=== PATIENT | female | born 1990 | race Asian ===

== ENCOUNTER 2021-07-09 09:49 | Inpatient (IN) | payer SELFPAY ==
[2021-07-09] MEDS ORDERED: Ondansetron 4 MG/2 ML SDV IVPUSH PRN (10:01)
[2021-07-09] MEDS ORDERED: Sodium Chloride 0.9% 10 ML Syringe FLUSH PRN (10:01)
[2021-07-09] MEDS ORDERED: Nalbuphine 10 MG/1 ML Vial IVPUSH PRN (10:01)
[2021-07-09] MEDS ORDERED: Lactated Ringers 1,000 ML IV SCH (10:15)
[2021-07-09] MEDS ORDERED: Oxytocin/Lactated Ringers 10 UNIT/1,000 ML BAG IV SCH ×2 (10:15)
--- NOTE | 2021-07-09 13:07 | PCM.LDHP ---
L&D History of Present Illness - General Date of Service: 07/09/21 Admit Problem/Dx: Patient Status Order with Admit Dx/Problem 07/09/21 10:02 Patient Status [ADT] Routine Admission Diagnosis/Problem Admission Diagnosis/Problem Source of Information: Patient History Limitations: Reports: No Limitations - History of Present Illness Introduction:: Patient is a 31 y/o at 39 5/7 wks who presented for IOL due to recent COVID vaccination and concerns for feeling more symptomatic. Tested positive 06/30 and then became more symptomatic and so underwent monoclonal antibody infusion on 07/02. On 07/06 was seen in clinic and still noted persistent cough and feelings of difficulty with becoming easily SOB. Requested elective IOL. Here today for IOL and notes suzie since overnight. 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 Covid- 19: 06/30/2021 - Past Surgical History HEENT Surgical History: Reports: Other (See Below) Other HEENT Surgeries/Procedures: [place] teeth extraction Female Surgical History: Reports: Breast Implant Dermatological Surgical History: Reports: Plastic Surgical Reconstruction/Repair Social & Family History - Family History Family Medical History: No Pertinent Family History - Tobacco Use Tobacco Use Status *Q: Never Tobacco User Second Hand Smoke Exposure: No - Alcohol Use Alcohol Use History: No - Recreational Drug Use Recreational Drug Use: No H&P Review of Systems - Review of Systems: Review Of Systems: See Below General: Reports: No Symptoms Pulmonary: Reports: Shortness of Breath, Cough Cardiovascular: Reports: No Symptoms Gastrointestinal: Reports: No Symptoms Genitourinary: Reports: No Symptoms Musculoskeletal: Reports: No Symptoms L&D Exam - Exam Exam: See Below - Vital Signs Vital Signs: Last Vital Signs Temp 36.5 C 07/09/21 10:02 Pulse Resp 14 07/09/21 10:02 BP 113/81 07/09/21 10:02 Pulse Ox 99 07/09/21 10:02 Weight: 74.707 kg - OB Specific Contraction Intensity: Mild to Moderate Movement: Active Heart Tones: Present Heart Tones per Min: 140 Heart Rate (FHR) Variability: Moderate (6-25 bpm) Presentation: Vertex - Roche Score Roche Score Cervix Position: Anterior Roche Score Consistency: Soft Roche Score Effacement: >80% Roche Score Dilation: > 5 cm Roche Score 's Station: -2 Roche Score Total: 11 - Exam General: Alert, Oriented, Cooperative Lungs: Clear to Auscultation, Normal Respiratory Effort Cardiovascular: Regular Rate, Regular Rhythm GI/Abdominal Exam: Soft, Non-Tender Genitourinary: Normal external exam - Patient Data Lab Results Last 24 hrs: Laboratory Results - last 24 hr 07/09/21 Range/Units 10:21 WBC 7.90 (3.98-10.04) K/mm3 RBC 4.68 (3.98-5.22) M/mm3 Hgb 15.3 (11.2-15.7) gm/dl Hct 45.5 H (34.1-44.9) % MCV 97.2 H (79.4-94.8) fl MCH 32.7 H (25.6-32.2) pg MCHC 33.6 (32.2-35.5) g/dl RDW Std Deviation 47.2 H (36.4-46.3) fL Plt Count 237 (182-369) K/mm3 MPV 9.2 L (9.4-12.3) fl Neut % (Auto) 62.6 (34.0-71.1) % Lymph % (Auto) 21.4 (19.3-51.7) % [place] % (Auto) 10.4 (4.7-12.5) % Eos % (Auto) 0.6 L (0.7-5.8) Baso % (Auto) 0.4 (0.1-1.2) % Neut # (Auto) 4.95 (1.56-6.13) K/mm3 Lymph # (Auto) 1.69 (1.18-3.74) K/mm3 [place] # (Auto) 0.82 H (0.24-0.36) K/mm3 Eos # (Auto) 0.05 (0.04-0.36) K/mm3 Baso # (Auto) 0.03 (0.01-0.08) K/mm3 Manual Slide Review Normal smear Result Diagrams: 07/09/21 10:21 - Problem List (1) 39 weeks gestation of SNOMED Code(s): 11235539 ICD Code: Z3A.39 - 39 WEEKS GESTATION OF Status: Acute Current Visit: Yes (2) COVID-19 affecting in third trimester SNOMED Code(s): 853812606, 765173877 ICD Code: O98.513 - OTHER VIRAL DISEASES COMPLICATING , THIRD TRIMESTER; U07.1 - COVID-19 Status: Acute Current Visit: Yes Problem List Initiated/Reviewed/Updated: Yes Orders Last 24hrs: Active Orders 24 hr Category Date Time Status Patient Status [ADT] Routine ADT 07/09/21 10:02 Active Activity as Tolerated [RC] PFP Care 07/09/21 10:02 Active Communication Order [RC] ASDIRECTED Care 07/09/21 10:02 Active Heart Tones [RC] ASDIRECTED Care 07/09/21 10:02 Active Non Stress Test [RC] PER UNIT ROUTINE Care 07/09/21 10:02 Active Notify Provider [RC] PFP Care 07/09/21 10:02 Active Notify Provider [RC] PRN Care 07/09/21 10:02 Active Peripheral IV Care [RC] . DIRECTED Care 07/09/21 10:02 Active Vital Signs [RC] PER UNIT ROUTINE Care 07/09/21 10:02 Active Consult to Case Management/Professor Of Marketing [CONS] Cons 07/09/21 11:52 Active Routine Regular Diet [DIET] Diet 07/09/21 Lunch Active BLOOD BANK HOLD SPECIMEN [BBK] Stat Lab 07/09/21 10:01 Ordered HEP C VIRUS AB [REF] Stat Lab 07/09/21 10:21 Received RAPID PLASMA REAGIN,RPR [CHEM] Routine Lab 07/09/21 10:21 Received Lactated Ringers [Ringers, Lactated] 1,000 ml Med 07/09/21 10:15 Active IV ASDIRECTED Nalbuphine [Nubain] Med 07/09/21 10:01 Active 10 mg IVPUSH Q2H PRN Ondansetron [Zofran] Med 07/09/21 10:01 Active 4 mg IVPUSH Q4H PRN Oxytocin/Lactated Ringers [Pitocin in LR 10 Units/1,000 Med 07/09/21 10:15 Active ML] 10 unit in 1,000 ml IV .CONTINUOUS Oxytocin/Lactated Ringers [Pitocin in LR 10 Units/1,000 Med 07/09/21 10:15 Ac tive ML] 10 unit in 1,000 ml IV TITRATE Sodium Chloride 0.9% [Saline Flush] Med 07/09/21 10:01 Active 10 ml FLUSH ASDIRECTED PRN Electronic Heart Tones Ext w TOCO [WOMSER] Oth 07/09/21 10:02 Ordered Routine Electronic Heart Tones Internal [WOMSER] Per Unit Ot 07/09/21 10:02 Ordered Routine Peripheral IV Insertion Adult [OM.PC] Routine Ot 07/09/21 10:02 Ordered Resuscitation Status Routine Resus Stat 07/09/21 10:01 Ordered Medication Orders Oxytocin/Lactated Ringer's (Pitocin In Lr 10 Units/1,000 Ml) 10 unit in 1,000 mls @ 12 mls/hr IV TITRATE LILA; Protocol Last Titration: 07/09/21 12:24 Dose: 8 munits/min, 48 mls/hr Documented by: Titration: 07/09/21 11:54 Dose: 6 munits/min, 36 mls/hr Documented by: Titration: 07/09/21 11:21 Dose: 4 munits/min, 24 mls/hr Documented by: Admin: 07/09/21 10:41 Dose: 2 munits/min, 12 mls/hr Documented by: YNES Oxytocin/Lactated Ringer's (Pitocin In Lr 10 Units/1,000 Ml) 10 unit in 1,000 mls @ 500 mls/hr IV .CONTINUOUS LILA Lactated Ringer's (Ringers, Lactated) 1,000 mls @ 100 mls/hr IV ASDIRECTED LILA Last Admin: 07/09/21 10:39 Dose: 100 mls/hr Documented by: YNES Nalbuphine HCl (Nalbuphine 10 Mg/1 Ml Vial) 10 mg IVPUSH Q2H PRN PRN Reason: Pain Ondansetron HCl (Ondansetron 4 Mg/2 Ml Sdv) 4 mg IVPUSH Q4H PRN PRN Reason: Nausea/Vomiting Sodium Chloride (Sodium Chloride 0.9% 10 Ml Syringe) 10 ml FLUSH ASDIRECTED PRN PRN Reason: Keep Vein Open Assessment/Plan Comment:: * Labs * GBS negative * Pain management per patient preference * AROM done, augmentation with pitocin * Anticipate
[2021-07-09] MEDS ORDERED: Lidocaine 1% 50 ML MDV ONE (15:22)
--- NOTE | 2021-07-09 15:33 | PCM.DEL ---
L & D Note - General Info Date of Service: 07/09/21 - Delivery Note Labor: Induced by ARM, Induced by Oxytocin Delivery Outcome: Livebirth Infant Delivery Method: Spontaneous Vaginal Delivery-Single Infant Delivery Mode: Spontaneous Presentation: Right Occiput Anterior (KALIE) Nuchal Cord: None Anesthesia Type: None Amniotic Fluid Description: Clear Laceration: 2nd Degree Suture type: Vicryl Suture size: 2-0 Placenta: Intact, Spontaneous Cord: 3 Vessels Estimated Blood Loss: 100 Resuscitation Needed: Yes [place]: Bulb Syringe, Stimulated, Warmed, Harmon Used, Warmer Used Delivery Comments (Free Text/Narrative):: Patient found to be complete and began pushing. With maternal pushing effort head delivered from KALIE presentation. No nuchal cord present. With gentle downward traction the shoulders and body delivered . placed on maternal abdomen. Cord clamped and cut. cord blood obtained. Placenta allowed time to separae and expelled intact. Inspection of perineum showed a 2nd degree laceration repaired with a 2-0 vicryl in typical fashion - General Info Date of Service: 07/09/21 - Patient Data Vitals - Most Recent: Last Vital Signs Temp 36.5 C 07/09/21 10:02 Pulse Resp 14 07/09/21 10:02 BP 113/81 07/09/21 10:02 Pulse Ox 99 07/09/21 10:02 Weight - Most Recent: 74.707 kg Lab Results Last 24 Hours: Laboratory Results - last 24 hr 07/09/21 Range/Units 10:21 WBC 7.90 (3.98-10.04) K/mm3 RBC 4.68 (3.98-5.22) M/mm3 Hgb 15.3 (11.2-15.7) gm/dl Hct 45.5 H (34.1-44.9) % MCV 97.2 H (79.4-94.8) fl MCH 32.7 H (25.6-32.2) pg MCHC 33.6 (32.2-35.5) g/dl RDW Std Deviation 47.2 H (36.4-46.3) fL Plt Count 237 (182-369) K/mm3 MPV 9.2 L (9.4-12.3) fl Neut % (Auto) 62.6 (34.0-71.1) % Lymph % (Auto) 21.4 (19.3-51.7) % [place] % (Auto) 10.4 (4.7-12.5) % Eos % (Auto) 0.6 L (0.7-5.8) Baso % (Auto) 0.4 (0.1-1.2) % Neut # (Auto) 4.95 (1.56-6.13) K/mm3 Lymph # (Auto) 1.69 (1.18-3.74) K/mm3 [place] # (Auto) 0.82 H (0.24-0.36) K/mm3 Eos # (Auto) 0.05 (0.04-0.36) K/mm3 Baso # (Auto) 0.03 (0.01-0.08) K/mm3 Manual Slide Review Normal smear - Problem List & Annotations (1) Vaginal delivery SNOMED Code(s): 763401238 Code(s): O80 - ENCOUNTER FOR FULL-TERM UNCOMPLICATED DELIVERY Status: Acute Current Visit: Yes (2) 39 weeks gestation of SNOMED Code(s): 85457262 Code(s): Z3A.39 - 39 WEEKS GESTATION OF Status: Acute Current Visit: Yes (3) COVID-19 affecting in third trimester SNOMED Code(s): 740494455, 518408716 Code(s): O98.513 - OTHER VIRAL DISEASES COMPLICATING , THIRD TRIMESTER; U07.1 - COVID-19 Status: Acute Current Visit: Yes - Problem List Review Problem List Initiated/Reviewed/Updated: Yes - My Orders Last 24 Hours: My Active Orders 07/09/21 10:01 BLOOD BANK HOLD SPECIMEN [BBK] Stat Nalbuphine [Nubain] 10 mg IVPUSH Q2H PRN Ondansetron [Zofran] 4 mg IVPUSH Q4H PRN Sodium Chloride 0.9% [Saline Flush] 10 ml FLUSH ASDIRECTED PRN Resuscitation Status Routine 07/09/21 10:02 Patient Status [ADT] Routine Activity as Tolerated [RC] PFP Communication Order [RC] ASDIRECTED Heart Tones [RC] ASDIRECTED Non Stress Test [RC] PER UNIT ROUTINE Notify Provider [RC] PFP Notify Provider [RC] PRN Peripheral IV Care [RC] . DIRECTED Vital Signs [RC] PER UNIT ROUTINE Electronic Heart Tones Ext w TOCO [WOMSER] Routine Electronic Heart Tones Internal [WOMSER] Per Unit Routine Peripheral IV Insertion Adult [OM.PC] Routine 07/09/21 10:15 Lactated Ringers [Ringers, Lactated] 1,000 ml IV ASDIRECTED Oxytocin/Lactated Ringers [Pitocin in LR 10 Units/1,000 ML] 10 unit in 1,000 ml IV .CONTINUOUS Oxytocin/Lactated Ringers [Pitocin in LR 10 Units/1,000 ML] 10 unit in 1,000 ml IV TITRATE 07/09/21 10:21 HEP C VIRUS AB [REF] Stat RAPID PLASMA REAGIN,RPR [CHEM] Routine 07/09/21 Lunch Regular Diet [DIET] 07/09/21 11:52 Consult to Case Management/Inter Com Installer [CONS] Routine - Assessment Assessment:: PPD#0 - Plan Plan:: * routine cares * bottle feeding * discharge in 1-2 days
[2021-07-09] MEDS ORDERED: Witch Hazel Medicated Pads 40/Jar TOP PRN (16:32)
[2021-07-09] MEDS ORDERED: Docusate Sodium 100 MG Cap PO PRN (16:32)
[2021-07-09] MEDS ORDERED: Benzocaine/Menthol 20%-0.5% Spray 56 GM Canister TOP PRN (16:32)
[2021-07-09] MEDS ORDERED: Ibuprofen 600 MG Tab PO PRN (16:32)
[2021-07-10] MEDS: Acetaminophen 325 MG Tab PO PRN ×4 (00:27→22:33)
--- NOTE | 2021-07-10 12:38 | PCM.PNPP ---
- General Info Date of Service: 07/10/21 Functional Status: Reports: Pain Controlled, Tolerating Diet, Ambulating, Urinating - Review of Systems General: Reports: No Symptoms Pulmonary: Reports: Cough Cardiovascular: Reports: No Symptoms Gastrointestinal: Reports: No Symptoms Genitourinary: Reports: No Symptoms Musculoskeletal: Reports: No Symptoms - Patient Data Vital Signs - Most Recent: Last Vital Signs Temp 36.1 C 07/10/21 09:18 Pulse 84 07/10/21 09:18 Resp 14 07/10/21 09:18 BP 101/70 07/10/21 09:18 Pulse Ox 98 07/10/21 09:18 Weight - Most Recent: 74.707 kg Lab Results - Last 24 Hours: Laboratory Results - last 24 hr 07/09/21 Range/Units 10:21 RPR Non-reactive (NONREACTIVE) Med Orders - Current: Current Medications Acetaminophen (Acetaminophen 325 Mg Tab) 650 mg PO Q4H PRN PRN Reason: mild pain or fever Last Admin: 07/10/21 00:27 Dose: 650 mg Documented by: Benzocaine/Menthol (Benzocaine/Menthol 20%-0.5% [place] 56 Gm Canister) 0 gm TOP ASDIRECTED PRN PRN Reason: Perineal Comfort Measure Last Admin: 07/09/21 16:46 Dose: 1 can Documented by: Docusate Sodium (Docusate Sodium 100 Mg Cap) 100 mg PO BID PRN PRN Reason: Constipation Ibuprofen (Ibuprofen 600 Mg Tab) 600 mg PO Q6H PRN PRN Reason: Mild pain or fever Witch Yamile (Witch Yamile Medicated Pads 40/Jar) 1 pad TOP ASDIRECTED PRN PRN Reason: Perineal Comfort Measure Last Admin: 07/09/21 16:46 Dose: 1 tub Documented by: Discontinued Medications Oxytocin/Lactated Ringer's (Pitocin In Lr 10 Units/1,000 Ml) 10 unit in 1,000 mls @ 12 mls/hr IV TITRATE LILA; Protocol Last Titration: 07/09/21 12:24 Dose: 8 munits/min, 48 mls/hr Documented by: Oxytocin/Lactated Ringer's (Pitocin In Lr 10 Units/1,000 Ml) 10 unit in 1,000 mls @ 500 mls/hr IV .CONTINUOUS LILA Lactated Ringer's (Ringers, Lactated) 1,000 mls @ 100 mls/hr IV ASDIRECTED LILA Last Admin: 07/09/21 10:39 Dose: 100 mls/hr Documented by: Lidocaine HCl (Lidocaine 1% 50 Ml Mdv) Confirm Administered Dose 50 ml .ROUTE .STK-MED ONE Stop: 07/09/21 15:23 Last Admin: 07/09/21 17:22 Dose: 50 ml Documented by: Nalbuphine HCl (Nalbuphine 10 Mg/1 Ml Vial) 10 mg IVPUSH Q2H PRN PRN Reason: Pain Ondansetron HCl (Ondansetron 4 Mg/2 Ml Sdv) 4 mg IVPUSH Q4H PRN PRN Reason: Nausea/Vomiting Sodium Chloride (Sodium Chloride 0.9% 10 Ml Syringe) 10 ml FLUSH ASDIRECTED PRN PRN Reason: Keep Vein Open - Infant Interaction Infant Disposition, : [place] in Room with Family Infant Feeding: Bottle Fed Support Person: - Recovery Exam Fundal Tone: Firm Fundal Level: 1 Fingerbreadths Below Umbilicus Fundal Placement: Midline Lochia Amount: Small Lochia Color: Rubra/Red Perineum Description: Other (see below) Other Perinuem Description: 2nd degree with repair Episiotomy/Laceration: Approximated Bladder Status: Voiding - Exam General: Alert, Oriented, Cooperative GI/Abdominal Exam: Soft, Non-Tender - Problem List & Annotations (1) Vaginal delivery SNOMED Code(s): 766599834 Code(s): O80 - ENCOUNTER FOR FULL-TERM UNCOMPLICATED DELIVERY Status: Acute Current Visit: Yes (2) 39 weeks gestation of SNOMED Code(s): 26448088 Code(s): Z3A.39 - 39 WEEKS GESTATION OF Status: Acute Current Visit: Yes (3) COVID-19 affecting in third trimester SNOMED Code(s): 999585144, 151237981 Code(s): O98.513 - OTHER VIRAL DISEASES COMPLICATING , THIRD TRIMESTER; U07.1 - COVID-19 Status: Acute Current Visit: Yes - Problem List Review Problem List Initiated/Reviewed/Updated: Yes - My Orders Last 24 Hours: My Active Orders 07/09/21 16:32 Acetaminophen [TylenoL] 650 mg PO Q4H PRN Benzocaine/Menthol [Dermoplast Pain Relief [place]] See Dose Instructions TOP ASDIRECTED PRN Docusate Sodium [Colace] 100 mg PO BID PRN Ibuprofen [Motrin] 600 mg PO Q6H PRN witch Yamile [Tucks] 1 pad TOP ASDIRECTED PRN Heat Therapy [OM.PC] PRN 07/09/21 16:32 Activity as Tolerated [RC] PER UNIT ROUTINE Vital Signs [RC] 03,,, Assess Lochia [WOMSER] Per Unit Routine Assess Uterine Involution [WOMSER] Per Unit Routine Breast Pump [WOMSER] Per Unit Routine Ice Therapy [OM.PC] Per Unit Routine Perineal Care [OM.PC] Per Unit Routine Peripheral IV Discontinue [OM.PC] Routine Sitz Bath [OM.PC] Per Unit Routine 07/09/21 Dinner Regular Diet [DIET] 07/10/21 16:32 Heat Therapy [OM.PC] PRN - Assessment Assessment:: PPD#1 - Plan Plan:: * routine cares * bottle feeding * discharge tomorrow
[2021-07-11] MEDS: Acetaminophen 325 MG Tab PO PRN ×2 (03:40→09:25)
--- NOTE | 2021-07-11 08:27 | PCM.DCSUM1 ---
Discharge Summary - Hospital Course Brief History: Admitted for induction. Uncomplicated course other than COVID + prior with significant symptoms. Diagnosis: Stroke: No - Discharge Data Discharge Date: 07/11/21 Discharge Disposition: Home, Self-Care 01 Condition: Good - Referral to Home Health Primary Care Physician: Emely Mcbride MD - Patient Instructions Diet: Usual Diet as Tolerated Activity: No Strenuous Activities Activity, Other: pelvic rest Driving: Do Not Drive Showering/Bathing: May Shower Notify Provider of: Fever, Increased Pain, Swelling and Redness, Drainage, Nausea and/or Vomiting - Discharge Plan *PRESCRIPTION DRUG MONITORING PROGRAM REVIEWED*: No *COPY OF PRESCRIPTION DRUG MONITORING REPORT IN PATIENT RUFUS: No Home Medications: Home Meds Pnv No.95/Ferrous Fum/Folic AC [ Tablet] 1 each PO DAILY 07/09/21 [History] Referrals: Emely Mcbride MD [Primary Care Provider] - (1 week) - Discharge Summary/Plan Comment DC Time >30 min.: No Total # of Minutes for Discharge Time: 29 - General Info Date of Service: 07/11/21 Functional Status: Reports: Pain Controlled - Review of Systems General: Reports: No Symptoms HEENT: Reports: No Symptoms Pulmonary: Reports: No Symptoms Cardiovascular: Reports: No Symptoms Gastrointestinal: Reports: No Symptoms Genitourinary: Reports: No Symptoms Musculoskeletal: Reports: No Symptoms Skin: Reports: No Symptoms Neurological: Reports: No Symptoms Psychiatric: Reports: No Symptoms - Patient Data Vitals - Most Recent: Last Vital Signs Temp 36.3 C 07/11/21 03:38 Pulse 72 07/11/21 03:38 Resp 12 07/11/21 03:38 BP 101/67 07/11/21 03:38 Pulse Ox 96 07/11/21 03:38 Weight - Most Recent: 74.707 kg Lab Results - Last 24 hrs: Laboratory Results - last 24 hr 07/09/21 Range/Units 10:21 Hepatitis C Antibody <0.1 (0.0-0.9) s/co ratio Med Orders - Current: Current Medications Acetaminophen (Acetaminophen 325 Mg Tab) 650 mg PO Q4H PRN PRN Reason: mild pain or fever Last Admin: 07/11/21 03:40 Dose: 650 mg Documented by: Benzocaine/Menthol (Benzocaine/Menthol 20%-0.5% [place] 56 Gm Canister) 0 gm TOP ASDIRECTED PRN PRN Reason: Perineal Comfort Measure Last Admin: 07/09/21 16:46 Dose: 1 can Documented by: Docusate Sodium (Docusate Sodium 100 Mg Cap) 100 mg PO BID PRN PRN Reason: Constipation Ibuprofen (Ibuprofen 600 Mg Tab) 600 mg PO Q6H PRN PRN Reason: Mild pain or fever Witch [place] (Witch Ana Maria Medicated Pads 40/Jar) 1 pad TOP ASDIRECTED PRN PRN Reason: Perineal Comfort Measure Last Admin: 07/09/21 16:46 Dose: 1 tub Documented by: Discontinued Medications Oxytocin/Lactated Ringer's (Pitocin In Lr 10 Units/1,000 Ml) 10 unit in 1,000 mls @ 12 mls/hr IV TITRATE LILA; Protocol Last Titration: 07/09/21 12:24 Dose: 8 munits/min, 48 mls/hr Documented by: Oxytocin/Lactated Ringer's (Pitocin In Lr 10 Units/1,000 Ml) 10 unit in 1,000 mls @ 500 mls/hr IV .CONTINUOUS LILA Lactated Ringer's (Ringers, Lactated) 1,000 mls @ 100 mls/hr IV ASDIRECTED LILA Last Admin: 07/09/21 10:39 Dose: 100 mls/hr Documented by: Lidocaine HCl (Lidocaine 1% 50 Ml Mdv) Confirm Administered Dose 50 ml .ROUTE .[facility]-MED ONE Stop: 07/09/21 15:23 Last Admin: 07/09/21 17:22 Dose: 50 ml Documented by: Nalbuphine HCl (Nalbuphine 10 Mg/1 Ml Vial) 10 mg IVPUSH Q2H PRN PRN Reason: Pain Ondansetron HCl (Ondansetron 4 Mg/2 Ml Sdv) 4 mg IVPUSH Q4H PRN PRN Reason: Nausea/Vomiting Sodium Chloride (Sodium Chloride 0.9% 10 Ml Syringe) 10 ml FLUSH ASDIRECTED PRN PRN Reason: Keep Vein Open - Exam General: Reports: Alert, Oriented HEENT: Reports: Pupils Equal, Pupils Reactive, EOMI, Mucous Membr. Moist/[place]fred Neck: Reports: Supple Lungs: Reports: Clear to Auscultation, Normal Respiratory Effort Cardiovascular: Reports: Regular Rate, Regular Rhythm GI/Abdominal Exam: Normal Bowel Sounds, Soft, Non-Tender, No Organomegaly, No Distention, No Abnormal Bruit, No Mass Rectal (Female) Exam: Normal Exam, Normal Rectal Tone Back Exam: Reports: Normal Inspection, Full Range of Motion Extremities: Normal Inspection, Normal Range of Motion, Non-Tender, No Pedal Edema, Normal Capillary Refill Skin: Reports: Warm, Dry, Intact Wound/Incisions: Reports: Healing Well Neurological: Reports: No New Focal Deficit Psy/Mental Status: Reports: Alert, Normal Affect, Normal Mood
== END 2021-07-11 12:20 | disposition home or self-care (01) | DRG 805 ==
LOC: JD.OBCHECK 09:49 → JD.OB 09:50 → OBSVTOIN 15:15 → JD.OB 15:15
PROVIDERS: ADMIT Obstetrics & Gynecology; ATTEND Obstetrics & Gynecology
PROC: 10E0XZZ Delivery of Products of Conception, External Approach (ICD-10-PCS; principal; 2021-07-09)
PROC: 0KQM0ZZ Repair Perineum Muscle, Open Approach (ICD-10-PCS; 2021-07-09)
PROC: 10907ZC Drainage of Amniotic Fluid, Therapeutic from Products of Conception, Via Natural or Artificial Opening (ICD-10-PCS; 2021-07-09)
PROC: 3E033VJ Introduction of Other Hormone into Peripheral Vein, Percutaneous Approach (ICD-10-PCS; 2021-07-09)
DX: O98.52 Other viral diseases complicating childbirth (principal); U07.1 COVID-19; Z37.0 Single live birth; O70.1 Second degree perineal laceration during delivery; Z3A.39 39 weeks gestation of pregnancy
CPT/HCPCS: 36415; 59025; 59409; 85025; 86592; 86803; A9270-GY; J2001; J2590; J7120